=== PATIENT | male | born 1970 | race Caucasian/White ===

== ENCOUNTER → 2021-10-07 | Day surgery (SDC) | payer OTHER ==
[~2021-10-07] VITALS: Ht 182.9 cm; Wt 96.2 kg
[~2021-10-07] MED LIST: CERTAGEN1 EACH PO; PERCOCET 7.5-31 EACH PO
== END | disposition home or self-care (01) ==
LOC: FAS 09:47
DX: Z12.11 Encounter for screening for malignant neoplasm of colon (principal); K63.5 Polyp of colon; F17.210 Nicotine dependence, cigarettes, uncomplicated; Z72.89 Other problems related to lifestyle
CPT/HCPCS: J2250; J2704; J7120